=== PATIENT | male | born 1940 | race Caucasian/White ===

== ENCOUNTER → 2018-05-18 | Outpatient (CLI) | payer MEDICARE, OTHER ==
[~2018-05-18] MED LIST: A/C/1TAB PO; ALPR-459 PO; AMIO200T49 PO; APIX5TAB PO; ASPI-715 PO; ATEN100T93 PO; ATOR10TA24 PO; ATOR10TA65 PO; ATOR20TA22 PO; ATOR20TA65 PO; BISO5TAB23 PO; BLOO-1777 MC; BROM3DRO OP; CEF300 PO; CEPH-13 PO; CLOP75TA PO; DABI110C PO; DABI150C3 PO; DIFL5DRO3 OP; DIGO125T73 PO; DIGO250T76 PO; DUTA0.5C14 PO; EMPA25TA PO; ESOM40CA42 PO; FES4PT PO; FLAS1KIT ASDIRECTED; FURO-45 PO; FURO-47 PO; FURO40SO5 PO; GLIM4TAB49 PO; GLUC1KIT4 IJ; INSU100I30 SQ; LANI SUBQ; LINA5TAB PO; LOS50 PO; LOSA100T63 PO; LOSA100T69 PO; LOSA25TA52 PO; LOSA50TA74 PO; MELA1TAB24 PO; MELA1TAB5 PO; METF-420 PO; METF-452 PO; METO50TA19 PO; MOXI3DRO2 OP; MULT-60 PO; NITR-1 PO; NITR-106 PO; PIMT TP; SENN-287 PO; SITA100T PO; SITA100T9 PO; SPIR100T30 PO; SPIR25TA80 PO; SYRI-1525 MC; TAMS0.4C70 PO; UBID100C26 PO; VIT1CAPS9 PO; [UNRECOGNIZED DRUG - OTHER] TP
--- NOTE | 2018-05-20 07:38 | RT HOLTER TEST ---
FACILITY: [facility] - [place] PATIENT NAME: MATILDE GAO : [id number] MR: [id number] V: [id number] EXAM DATE: ORDERING PHYSICIAN: SAFIA ARREOLA TECHNOLOGIST: JCARLOS Hook-up date: 2018-05-18 15:23:00 Duration: 26:33:00 Test Indications: AFIB Medications: N/A 783324 QRS complexes 6647 Ventricular ectopics which represent 4 % of total QRS comp. 4846 Supraventricular ectopics which represent 3 % of total QRS comp. * Paced QRS complexes which represent % of total QRS comp. VENTRICULAR ECTOPY 6086 Isolated 261 Bigeminal Cycles 267 Couplets 9 Runs 27 Beats in Runs 3 Beats LONGEST at 110 BPM at 17:53:42 2018-05-18 3 Beats FASTEST at 159 BPM at 06:33:57 2018-05-19 SUPRAVENTRICULAR ECTOPY 2263 Isolated 537 Couplets 396 Runs 1509 Beats in Runs 14 Beats LONGEST at 136 BPM at 19:17:44 2018-05-18 3 Beats FASTEST at 180 BPM at 17:41:17 2018-05-19 HEART RATES 53 MIN at 06:08:11 2018-05-19 89 AVG 163 MAX at 07:21:00 2018-05-19 LONGEST RR 1.840 secs at 04:54:11 2018-05-19 S-T LEVELS Channel 1 -12.800 mm MIN at 15:23:00 2018-05-18 -12.800 mm MAX at 15:23:00 2018-05-18 Channel 2 -12.800 mm MIN at 15:23:00 2018-05-18 -12.800 mm MAX at 15:23:00 2018-05-18 Channel 3 -12.800 mm MIN at 15:23:00 2018-05-18 -12.800 mm MAX at 15:23:00 2018-05-18 Good quality study. Underlying rythym atrial fibrillation throughout. Frequent PVC with occasional runs of bigeminy. Maximum heart rate 163 could correspond to episode of afib with RVR depending on circumstance it occu red under. Confirmed by Kota Ramírez ([id number]) on 05/20/2018 7:38:39 AM Referred By: Overread By: Kota Macdonald
== END ==
LOC: RESP 00:54
PROVIDERS: ATTEND Internal Medicine Gastroenterology
DX: I48.1 Persistent atrial fibrillation (principal)
CPT/HCPCS: 93225

== ENCOUNTER → 2019-01-31 | Outpatient (CLI) | payer MEDICARE, OTHER ==
[~2019-01-31] MED LIST changes: -LOSA100T69 PO; +LOSA100T75 PO; -LOSA25TA52 PO; +LOSA25TA57 PO; -LOSA50TA74 PO; +LOSA50TA80 PO; +NEED-653 ASDIRECTED
== END ==
LOC: RAD 00:58
PROVIDERS: ATTEND Internal Medicine Cardiovascular Disease
DX: I51.7 Cardiomegaly (principal)
CPT/HCPCS: 93306

== ENCOUNTER → 2019-02-11 | Outpatient (CLI) | payer MEDICARE, OTHER ==
[~2019-02-11] MED LIST changes: +REGADENOSON 0.4 MG/5 ML SYR ONE
--- NOTE | 2019-02-11 17:13 | RADIOLOGY IMAGING REPORT ---
FAC[place] [facility] [place]IENT NAME: Ck Bennett : 1940 MR: [id number] V: [id number] EXAM DATE: ORDERING PHYSICIAN: JOAQUIN CHAO TECHNOLOGIST: Location: [facility] Patient: Ck Bennett : 1940 Visit/Account:[id number] Date of Sevice: 02/11/2019 EXAMINATION: Single isotope SPECT imaging with regadenoson infusion and gated SPECT imaging. DATE OF EXAMINATION: 02/11/2019. DATE OF INTERPRETATION: 02/11/2019. REQUESTING PHYSICIAN: JOAQUIN CHAO. INDICATION: The patient is a 78-year-old female evaluated for chest pain. PROCEDURE: After informed consent the patient received an intravenous injection of 11.4 mCi of Tc-99 m sestamibi followed at an appropriate time interval by rest imaging. The patient then subsequently received an intravenous infusion of 0.4 mg of regadenoson per protocol without complication. Resting heart rate was 83 bpm with a peak heart rate of 90 bpm. Blood pressure at rest was 156 / 79 and fol lowing infusion was 136 / 79. Baseline EKG demonstrates sinus rhythm with diffuse T-wave inversions. There were no EKG changes of ischemia following infusion. Symptoms were nonspecific. The patient then received an intravenous injection of 28.3 mCi of Tc-99m sestamibi followed by stress imaging. RAW DATA: Examination of the summed raw data revealed a poor quality study. There is significant bow el activity that makes it impossible to accurately interpret the inferolateral wall. MYOCARDIAL PERFUSION: The tomographic images demonstrate normal perfusion in the anterior wall and s eptum. There is significant artifact in the inferior and lateral wright in all sequences that preclude accurate assessment for infarct or ischemia. There is no TID. GATED IMAGES: The gated images demonstrate mildly decreased ejection fraction 40% with septal hypoki nesis. IMPRESSION: 1. Nondiagnostic Lexiscan stress ECG 2. Normal myocardial perfusion in the anterior septal wall. Inferior and lateral wall has significan t artifact and accurate interpretation for infarct or ischemia is not possible. 3. Mildly decreased LV systolic function; LVEF 40%. Report Dictated By: Matthew Fiore at 02/11/2019 5:04 PM Report E-Signed By: Matthew Fiore at 02/11/2019 5:07 PM WSN:[id number]
== END ==
LOC: NUC 01:01
PROVIDERS: ATTEND Family Medicine
DX: R07.9 Chest pain, unspecified (principal)
CPT/HCPCS: 78452; 93017; A9500; J2785